=== PATIENT | male | born 2000 | race Caucasian/White ===

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

== ENCOUNTER 2019-01-08 10:19 | Emergency (ER) | payer MEDICAID ==
[~2019-01-08] VITALS: Ht 160 cm; Wt 60.3 kg
[2019-01-08 10:22] VITALS: Ht 160 cm; Wt 60.3 kg
[2019-01-08 13:08] VITALS: BP 146/72
== END 2019-01-08 13:09 | disposition home or self-care (01) ==
LOC: ED 10:19
DX: R51 Headache (principal); H52.12 Myopia, left eye
CPT/HCPCS: J3030